=== PATIENT | female | born 1985 | race Caucasian/White ===

== ENCOUNTER 2016-10-17 09:49 | Inpatient (IN) ==
[2016-10-17 12:29] LABS: URINE CULTURE PL NEEDED? NO
[2016-10-17] MEDS ORDERED: PHENERGAN PO PRN (12:53)
[2016-10-17] MEDS ORDERED: TYLENOL PO PRN (12:53)
[2016-10-17] MEDS ORDERED: SENOKOT PO PRN (12:53)
[2016-10-17] MEDS ORDERED: TUBERSOL ID ONE (12:53)
[2016-10-17] MEDS ORDERED: SALINE LOCK IV FLUID XX ONE (12:53)
[2016-10-17] MEDS ORDERED: BENTYL PO PRN (12:53)
[2016-10-17] MEDS ORDERED: ZOFRAN IV PRN (12:53)
[2016-10-17] MEDS ORDERED: DULCOLAX PR PRN (12:53)
[2016-10-17] MEDS ORDERED: MAALOX PLUS LIQUID PO PRN (12:53)
[2016-10-17] MEDS ORDERED: IMODIUM PO PRN (12:53)
[2016-10-17 13:00] LABS: BILIRUBIN URINE NEGATIVE (NEGATIVE); BLOOD URINE NEGATIVE (NEGATIVE); CLARITY CLEAR (CLEAR); COLOR YELLOW; GLUCOSE URINE NEGATIVE (NEGATIVE); LEUKOCYTES URINE 1+ (NEGATIVE); NITRITE URINE NEGATIVE (NEGATIVE); PROTEIN URINE NEGATIVE (NEGATIVE); SP GRAVITY URINE 1.005; UROBILINOGEN URINE NORMAL
[2016-10-17 13:02] LABS: UR AMPHETAMINES QUAL NONE DETECTED (NONE DETECT); UR BARBITUATES QUAL NONE DETECTED (NONE DETECT); UR BENZODIAZEPIN QUAL NONE DETECTED (NONE DETECT); UR CANNABINOIDS QUAL NONE DETECTED (NONE DETECT); UR COCAINE QUAL NONE DETECTED (NONE DETECT); UR MDMA QUAL NONE DETECTED (NONE DETECT); UR METHADONE QUAL NONE DETECTED (NONE DETECT); UR METHAMPHETAMINE QUAL NONE DETECTED (NONE DETECT); UR OPIATES QUAL NONE DETECTED (NONE DETECT); UR OXYCODONE QUAL NONE DETECTED (NONE DETECT); UR PCP QUAL NONE DETECTED (NONE DETECT); UR TCA QUAL NONE DETECTED (NONE DETECT)
[2016-10-17 13:14] LABS: URINE EPITHELIAL CELLS >10 /HPF (<10); URINE SOURCE CLEAN CATCH
[2016-10-17] MEDS: SUBOXONE 2 MG/0.5 MG SL SCH (13:58)
[2016-10-17] MEDS ORDERED: M.V.I.-12 10 ML, FOLIC ACID 1 MG, MAGNESIUM SULFATE 1 GM, THIAMINE 100 MG in NS 1,000 ML IV ONE (14:00)
[2016-10-17 14:06] LABS: MANUAL DIFF NEEDED? NO
[2016-10-17 14:13] LABS: BASO% 0.4 % (0.0-0.8); EOS# 0.19 X1000 (0.0-0.7); EOS% 2.7 % (0.0-10.0); HEMATOCRIT 38.8 % (37.0-47.0); HEMOGLOBIN 13.3 g/dL (12.0-16.0); IMM GRAN# 0.01 X1000 (0.0-0.04); IMM GRAN% 0.1 % (0.0-0.5); LYMPH# 1.58 X1000 (1.2-3.4); LYMPH% 22.8 % (20.5-51.1); MCH 28.5 PG (27-31); MCHC 34.3 g/dL (33-37); MCV 83.1 FL (81-99); MONO% 5.8 % (1.7-9.3); MPV 10.9 FL (7.4-10.4); NEUT% 68.2 % (42.2-75.2); PLT 188 X1000 (130-400); RBC 4.67 XMIL (4.2-5.4)
[2016-10-17 14:46] LABS: INR 0.98 (0.86-1.15); PROTIME 13.3 Seconds (12.1-15.5)
[2016-10-17 14:50] LABS: AGAP 15; ALBUMIN 4.2 g/dL (3.5-5.0); ALKALINE PHOSPHATASE 116 U/L (32-104); AMYLASE 63 U/L (20-200); BUN 8 mg/dL (8-22); CALCIUM 9.7 mg/dL (8.8-10.2); CHLORIDE 102 mmol/L (98-107); COSMO 282; GOT 28 U/L (10-30); GPT 19 U/L (10-36); LIPASE 36 U/L (13-60); POTASSIUM 3.3 mmol/L (3.5-5.1); SODIUM 142 mmol/L (136-145); TCO2 25 mmol/L (25-35); TOTAL PROTEIN 7.2 g/dL (6.3-8.3)
[2016-10-17] MEDS ORDERED: NICODERM PATCH TD ONE (17:46)
[2016-10-17] MEDS: LIBRIUM PO PRN (18:00)
[2016-10-17] MEDS: ROBAXIN PO PRN (18:00)
[2016-10-17] MEDS: MOTRIN PO PRN ×2 (18:00→22:55)
[2016-10-17] MEDS: AMBIEN PO PRN (22:56)
[2016-10-18] MEDS: SUBOXONE 2 MG/0.5 MG SL SCH (00:52)
[2016-10-18] MEDS: NICODERM PATCH TD SCH ×2 (08:37→18:33)
[2016-10-18] MEDS: LIBRIUM PO PRN (08:38)
[2016-10-18] MEDS: ROBAXIN PO PRN (08:38)
[2016-10-18] MEDS: MOTRIN PO PRN ×2 (08:38→20:48)
[2016-10-18] MEDS: VITAMIN B-1 PO SCH (08:38)
[2016-10-18] MEDS: THERA M PLUS PO SCH (08:38)
[2016-10-18] MEDS: FOLIC ACID PO SCH (08:38)
[2016-10-18] MEDS ORDERED: SUBOXONE 8 MG/2 MG SL SCH (09:00)
[2016-10-18] MEDS: SUBOXONE 8 MG/2 MG SL SCH (13:06)
[2016-10-18] MEDS: KLONOPIN PO PRN ×2 (13:07→20:48)
[2016-10-18] MEDS: AMBIEN PO PRN (20:48)
[2016-10-19] MEDS: SUBOXONE 8 MG/2 MG SL SCH ×2 (00:17→11:16)
[2016-10-19 07:42] VITALS: BP 91/53
[2016-10-19] MEDS: FOLIC ACID PO SCH (09:22)
[2016-10-19] MEDS: NICODERM PATCH TD SCH (09:22)
[2016-10-19] MEDS: VITAMIN B-1 PO SCH (09:22)
[2016-10-19] MEDS: THERA M PLUS PO SCH (09:22)
[2016-10-19] MEDS: KLONOPIN PO PRN (11:06)
--- NOTE | 2016-10-19 13:08 | PROGRESS NOTE ---
DATE: 10/19/2016 SUBJECTIVE: The patient notes she is feeling a little bit better, having less nervousness and jitteriness, but still having sweating. Diarrhea is improving. She is actually starting to eat some. States that she is excited about trying to eat breakfast. Nausea is better. Still having abdominal pain and cramping. Did not sleep last night. OBJECTIVE: Vital Signs: Reviewed. She is afebrile. Temperature 98 degrees, pulse 74, respiratory 16, BP 101/67. General: Patient is awake, alert, oriented. She is currently in no respiratory distress but still ill-appearing secondary to her withdrawal symptoms. Neck: Supple. CV: Regular rate. Chest: Relatively clear. Abdomen: Soft. Extremities: Moves all extremities. Neurologic: No changes. Skin: Warm and dry. No rashes. LABS: Reviewed. CBC and CMP essentially normal. Potassium 3.3. ASSESSMENT: 1. Hypokalemia, will replace. 2. Nausea and vomiting. 3. Abdominal pain. 4. Myalgias. 5. Tremors. 6. Paresthesias. 7. Diarrhea. 8. Opiate abuse, withdrawal, and stabilization. 9. Chronic tobacco abuse. PLAN: Will continue Suboxone. Will increase to 8/2. Will continue her nicotine patch. Continue counseling. Replace her potassium. Discussed with the patient use and abuse. Further orders as needed. Twenty-five minutes spent at the bedside. cc: Bennett Rousseau MD
--- NOTE | 2016-10-20 15:26 | DISCHARGE SUMMARY ---
ADMISSION DATE: 10/17/2016 DISCHARGE DATE: 10/19/2016 DISCHARGE DIAGNOSES: 1. Nausea and vomiting. 2. Abdominal pain. 3. Hypokalemia, resolved. 4. Opiate abuse, withdrawal, and stabilization. 5. Paroxysmal sweating. 6. Others. CONSULTATIONS: None. PROCEDURES: None. BRIEF HOSPITAL COURSE: The patient is a 31-year-old female, who presented to the emergency department as noted on the HPI. Treated in usual fashion for opiate abuse, withdrawal, and stabilization. She thankfully had an uneventful hospital course. She was placed on Suboxone which she tolerated very well. The dose was increased to 8/2 to alleviate her acute withdrawal symptoms. On discharge, she was in no distress. She was feeling better. DISPOSITION: The patient will be discharged home. TIME SPENT: 35 minutes was spent in discharge planning and instructions. Discussed with patient that she needs to avoid all persons, places, situations which she has been using and abusing in the past. She needs outpatient life counseling as well as drug counseling. She needs to follow up outpatient with treatment facility of choice to help her avoid use and abuse in the future. She will continue Suboxone 8/2 twice a day. Again, discussed with patient the perils of smoking. cc: Bennett Rousseau MD
--- NOTE | 2016-10-20 15:34 | HISTORY AND PHYSICAL ---
CHIEF COMPLAINT: Nausea and vomiting. HISTORY OF PRESENT ILLNESS: Patient is a 31-year-old female, who [facility] secondary to nausea, vomiting, abdominal pain. She states that she has been using and abusing opiates for quite some time. Unfortunately, her symptoms get too severe and she starts using again. Patient states that her withdrawal symptoms currently are moderate to severe in nature with abdominal pain, nausea, vomiting. SOCIAL HISTORY: Patient lives at home in [place]. She is and has 2 children that live in the house. SUBSTANCE ABUSE HISTORY: The patient notes that she started using narcotics at age 15. Currently takes Hernandez 10 mg at least 6 pills a day. Started smoking at age 13. Currently smokes a pack a day. Does not drink or use other illicit substances. PAST MEDICAL HISTORY: Significant for anxiety. She has been in a treatment facility in July 2015 for opiate abuse. She remained clean for a few months but then started hanging out with her old crowd and started again. ALLERGIES: No known drug allergies. MEDICATIONS: Klonopin 0.5 mg twice a day. REVIEW OF SYSTEMS: Her CINA score is 16 secondary to nausea, vomiting, abdominal pain, frequent cramping and dry heaves, frequent nausea, paroxysmal sweating, frequent uncontrolled yawning. Denies any chest pain, palpitations. Denies any fevers, chills. Denies any dysuria, frequency, urgency. Denies any hesitancy, polyuria, polydipsia. Denies any skin rashes, weight loss or weight gain. FAMILY HISTORY: Noncontributory. OBJECTIVE: Vital Signs: Reviewed. Patient is awake, alert. She is currently in no real respiratory distress. She is pleasant to talk with. Speech is regular. Memory is intact. HEENT: Normocephalic, atraumatic. MELODIE. Neck: Supple. CV: Regular rate. Chest: Relatively clear. Abdomen: Soft, nondistended. Extremities: Moves all extremities. Neurologic: No focal neurological changes. Skin: Warm and dry. No rashes. DIAGNOSTIC DATA: Pending. ASSESSMENT: 1. Nausea, vomiting, abdominal pain. 2. Tremors. 3. Myalgias. 4. Paresthesias. 5. Paroxysmal sweating. 6. Opiate abuse, withdrawal, and stabilization. 7. Chronic tobacco abuse. PLAN: We will place the patient in the hospital for stabilization of her opiate withdrawal symptoms. Will continue to follow. Further orders as needed. Will use symptomatic medications as needed. We again discussed with patient the perils of smoking as well as ways to stop. cc: Bennett Rousseau MD
== END 2016-10-19 11:17 | disposition home or self-care (01) ==
LOC: P.DIRADM 10:58 → P.MEDSURG 11:29
PROVIDERS: ADMIT Family Medicine; ATTEND Family Medicine